=== PATIENT | female | born 1975 | race Caucasian/White ===

== ENCOUNTER 2021-02-15 20:21 | Inpatient (IN) | payer MEDICAID, SELFPAY ==
[2021-02-15 20:21] VITALS: BP 148/98; PULSE 90; RESP 16; TEMP 36.5; O2SAT 94
[2021-02-15 20:26] VITALS: BMI 24.5
[2021-02-15 20:38] VITALS: RESP 18
--- NOTE | 2021-02-15 23:05 | PC.NURSE ---
The skin assessment revealed no wounds or injuries. The patient has no teeth and does not use dentures.
[2021-02-16 06:00] VITALS: BP 169/110; PULSE 91; RESP 16; TEMP 36.6; O2SAT 100
[2021-02-16] MEDS: hydroCHLOROthiazide 25 mg Tablet 12.5 MG PO (08:44)
[2021-02-16] MEDS: amlodipine 5 mg Tablet PO (08:45)
[2021-02-16 14:00] VITALS: BP 112/71; PULSE 106; RESP 18; TEMP 36.5; O2SAT 93
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
[2021-02-16 21:12] VITALS: BP 151/85; PULSE 76; RESP 20; TEMP 36.8; O2SAT 95
[2021-02-16] MEDS: hyDROXYzine 25 mg Capsule 50 MG PO (21:18)
[2021-02-16] MEDS: trazodone 50 mg Tablet PO (21:18)
--- NOTE | 2021-02-16 21:52 | PC.NURSE ---
Addendum entered by Tammy Benavides LPN 02/16/21 22:51: 2150 pt appears to be sleeping at bed check Original Note: PRN 8 administered Trazadone 50 mg, Vistaril 50mg, for sleeping aid and anxiety, will continue to monitor pt through end of my shift.
[2021-02-17 05:35] VITALS: BP 146/92; PULSE 73; RESP 18; TEMP 36.9; O2SAT 96
[2021-02-17] MEDS: hydroCHLOROthiazide 25 mg Tablet 12.5 MG PO (08:12)
[2021-02-17] MEDS: amlodipine 5 mg Tablet PO (08:12)
[2021-02-17] MEDS: OLANZapine 5 mg TABLET PO (12:07)
[2021-02-17 14:00] VITALS: BP 161/113; PULSE 86; RESP 20; TEMP 36.6; O2SAT 96
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
[2021-02-17 14:49] VITALS: BP 146/92; PULSE 73; RESP 18; TEMP 36.9; O2SAT 96
== END 2021-02-17 18:23 | disposition home or self-care (01) | DRG 885 ==
PROVIDERS: Admitting Provider Psychiatry & Neurology Psychiatry; Visit Provider Psychiatry & Neurology Psychiatry
DX: F29 Unspecified psychosis not due to a substance or known physiological condition (principal); R45.851 Suicidal ideations; F43.10 Post-traumatic stress disorder, unspecified; F12.10 Cannabis abuse, uncomplicated; Z72.0 Tobacco use; Z81.8 Family history of other mental and behavioral disorders; Z62.810 Personal history of physical and sexual abuse in childhood; Z91.14 Patient's other noncompliance with medication regimen